=== PATIENT | female | born 1950 | race Two or more races ===

== ENCOUNTER 2017-06-16 09:58 | Outpatient (CLI) | payer OTHER | END 2017-06-16 10:30 | disposition home or self-care (01) | LOC: NUCLEAR 09:58 | DX: C50.411 Malignant neoplasm of upper-outer quadrant of right female breast (principal) | CPT/HCPCS: 78472; 78496; A9560 ==

== ENCOUNTER 2017-06-19 07:12 | Outpatient (CLI) | payer OTHER | END 2017-06-19 08:00 | disposition home or self-care (01) | LOC: NUCLEAR 07:12 | DX: C50.411 Malignant neoplasm of upper-outer quadrant of right female breast (principal) | CPT/HCPCS: 78306; A9503 ==

== ENCOUNTER → 2022-05-06 | Outpatient (CLI) | payer OTHER | END | disposition home or self-care (01) | LOC: SONOGRAMA 08:50 | PROVIDERS: ATTEND Pathology Anatomic Pathology & Clinical Pathology | DX: D34 Benign neoplasm of thyroid gland (principal); E04.1 Nontoxic single thyroid nodule; E07.9 Disorder of thyroid, unspecified ==